=== PATIENT | female | born 1960 | race Caucasian/White ===

== ENCOUNTER 2021-12-09 06:40 | Day surgery (SDC) | payer OTHER ==
[~2021-12-09] VITALS: Ht 165.1 cm; Wt 78.1 kg
[~2021-12-09 06:40] MED LIST: ACEASPCAF PO; ATOR80 PO; CARV6.25 PO; DIVA250EC PO; FURO40 PO; HYDPAM25 PO; LEVE500 PO; LOSA50 PO; NAPR220 PO; PHENY100ER PO
[2021-12-09] MEDS ORDERED: SENNA LAXATIVE8.6 MG (07:18)
[2021-12-09] MEDS ORDERED: FURO20 (07:18)
[2021-12-09] MEDS ORDERED: FLUT1DIS2 (07:19)
== END 2021-12-09 08:57 | disposition home or self-care (01) ==
LOC: ORSCSDS 06:40
PROVIDERS: Surgery
PROC: 0DBK8ZX Excision of Ascending Colon, Via Natural or Artificial Opening Endoscopic, Diagnostic (ICD-10-PCS; principal; 2021-12-09 08:00)
PROC: 0DBL8ZX Excision of Transverse Colon, Via Natural or Artificial Opening Endoscopic, Diagnostic (ICD-10-PCS; principal; 2021-12-09 08:00)
DX: Z12.11 Encounter for screening for malignant neoplasm of colon (principal); Z86.010 Personal history of colon polyps; Z80.0 Family history of malignant neoplasm of digestive organs; D12.3 Benign neoplasm of transverse colon; D12.2 Benign neoplasm of ascending colon; K64.8 Other hemorrhoids; K57.30 Diverticulosis of large intestine without perforation or abscess without bleeding; K21.9 Gastro-esophageal reflux disease without esophagitis; I25.5 Ischemic cardiomyopathy; I42.0 Dilated cardiomyopathy; I25.10 Atherosclerotic heart disease of native coronary artery without angina pectoris; D49.89 Neoplasm of unspecified behavior of other specified sites; G40.909 Epilepsy, unspecified, not intractable, without status epilepticus; E78.5 Hyperlipidemia, unspecified; I10 Essential (primary) hypertension; G47.9 Sleep disorder, unspecified; F10.11 Alcohol abuse, in remission; F15.11 Other stimulant abuse, in remission; F17.210 Nicotine dependence, cigarettes, uncomplicated; Z79.899 Other long term (current) drug therapy
CPT/HCPCS: 88305; J2405; J2704; J7120

== ENCOUNTER → 2022-03-15 | Outpatient (CLI) | payer OTHER ==
[~2022-03-15] MED LIST changes: +FLUT1DIS2; +FURO20; +SENNA LAXATIVE8.6 MG
== END ==
LOC: LAB SHORT 10:57 → LAB 10:57
DX: D48.5 Neoplasm of uncertain behavior of skin (principal)
CPT/HCPCS: 87070; 87075; 87205